=== PATIENT | male | born 1995 | race Caucasian/White ===

== ENCOUNTER 2020-08-18 17:38 | Emergency (ER) | payer BC, SELFPAY ==
--- NOTE | ~2020-08-18 | XR_ITS ---
EXAMINATION: XR ABDOMEN KUB CLINICAL INDICATION: Constipation. Irregular blood cells. COMPARISON: None TECHNIQUE: AP view of the abdomen. FINDINGS: There is scattered stool and gas seen throughout the colon without any significant distention. There is no organomegaly. No radiopaque calculi seen. No gross bony abnormality. XR/XR KUB IMPRESSION: Mild constipation.
--- NOTE | ~2020-08-18 | CT_ITS ---
EXAMINATION: CT ABDOMEN AND PELVIS WITH CONTRAST CLINICAL INFORMATION: Right lower quadrant abdominal pain COMPARISON: None TECHNIQUE: Multidetector volumetric images were obtained from the superior aspect of the liver through the pubic symphysis following administration 85 mL of Omnipaque 350 intravenous contrast. Sagittal and coronal reformatted images were obtained on the technologist's workstation. Oral contrast: No This CT examination was performed using dose optimization techniques as appropriate, variously including the following: *Automated exposure control *Adjustment of mA and/or kV according to patient size (this includes techniques or standardized protocols for targeted exams where dose is matched to indication/reason for exam; i.e. extremities or head) *Use of iterative reconstruction technique DLP: 369 mGy-cm FINDINGS: LUNG BASES: Clear. LIVER, GALLBLADDER, AND BILIARY TREE: The liver is normal in size, shape, and attenuation. No focal hepatic lesion or biliary ductal dilatation is present. The gallbladder is unremarkable with no evidence of radiopaque gallstones, gallbladder wall thickening, or obvious pericholecystic inflammatory changes. PANCREAS: Unremarkable. SPLEEN: Unremarkable. ADRENAL GLANDS: Unremarkable. KIDNEYS AND URETERS: The kidneys are normal in size, shape, and attenuation. No hydronephrosis, hydroureter, or calculi seen. No perinephric stranding. BLADDER: Unremarkable. GASTROINTESTINAL TRACT: The small and large bowel are unremarkable. The appendix is unremarkable. ABDOMINAL WALL: No significant hernia is appreciated. LYMPH NODES: Normal. VASCULAR: Unremarkable. PELVIC VISCERA: Unremarkable. OSSEOUS STRUCTURES: Unremarkable. CT/CT abdomen pelvis w con IMPRESSION: No etiology for the patient's right lower quadrant pain is identified.
[2020-08-18 18:28] VITALS: BP 133/76; PULSE 109; RESP 18; TEMP 38; O2SAT 99; BMI 18.8
[2020-08-18] MEDS: Acetaminophen 325 MG TABLET 650 MG PO (18:40)
[2020-08-18 20:27] LABS: MANUAL DIFF FLAG NO
[2020-08-18 20:29] LABS: Basophils Percent Auto 0.2 % (0-2); Eosinophils Percent Auto 0.1 % (0-4); Imm Gran Abs Auto 0.05 X10*3/uL (0.00-0.03); Imm Gran Pct Auto 0.3 % (0.0-0.4); Lymphocytes Absolute Auto 0.9 X10*3/uL (1.2-4.9); Lymphocytes Percent Auto 6.1 % (20-40); Mean Corpuscular HGB Conc 33.3 g/dl (31.0-36.0); Mean Corpuscular Hemoglobin 29.2 pg (27.0-33.0); Mean Corpuscular Volume 87.5 fL (80-98); Mean Platelet Volume 10.7 fL (9.4-12.4); Monocytes Absolute Auto 1.1 X10*3/uL (0.1-1.2); Monocytes Percent Auto 7.2 % (2-11); Neutrophils Absolute Auto 12.6 X10*3/uL (2.0-8.3); Neutrophils Percent Auto 86.1 % (45-73); Platelet Count 242 X10*3/uL (160-400); Red Blood Count 5.14 X10*6/uL (4.60-5.80); Red Cell Distribution Width 12.2 % (11.0-16.0); White Blood Count 14.6 X10*3/uL (4.8-10.8)
[2020-08-18 20:48] LABS: Alanine Aminotransferase 21 U/L (0-40); Albumin Level 4.6 g/dL (3.5-5.0); Alkaline Phosphatase 120 U/L (39-117); Anion Gap 15 (12-20); Aspartate Amino Transferase 19 U/L (5-37); Bilirubin Total 0.8 mg/dL (0.0-1.0); Blood Urea Nitrogen 19 mg/dL (9-16); Calcium 9.7 mg/dL (8.4-10.2); Carbon Dioxide 25 mmol/L (22-29); Chloride 102 mmol/L (96-108); Creatinine Clr Calc Pharmacy 104.2; Estimated Glomerular Filt Rate > 60; Glucose Random 87 mg/dL (60-115); Potassium 3.9 mmol/L (3.3-5.1); Sodium 138 mmol/L (135-145); Total Protein 7.3 g/dL (6.5-8.0)
--- NOTE | 2020-08-19 00:01 | ED_ITS ---
HPI - General Adult General Chief complaint: General Medical Stated complaint: weakness, lump in chest Time Seen by Provider: 08/18/20 23:34 Source: patient and family (Mother and father) Mode of arrival: ambulatory History of Present Illness HPI narrative: This is a 24-year-old male with history of ADHD and presents with complaints of fevers without nausea or vomiting, but having abdominal discomfort that is periumbilical and sharp which has progressively worsened throughout the day. Patient knows that he is constipated at times but denies any urinary pain/burning/frequency. There is also mention of a folliculitis at the right anterior chest wall as well as a history of constipation with noted blood mixed with stool that has been ongoing for years. Related Data Previous Rx's Medication Instructions Recorded doxycycline hyclate 100 mg PO BID 5 Days #10 cap 08/19/20 Allergies Allergy/AdvReac Type Severity Reaction Status Date / Time No Known Allergies Allergy Unverified 11/19/19 16:41 Review of Systems Review of Systems: Pertinent positives and negatives as stated in HPI 10 point review of systems is otherwise negative. PMFSH Past Medical History Source: nursing notes reviewed Medical History ADHD Social History Social History Alcohol intake: never Patient Tobacco Use Status: Former Tobacco user Smoked in Last 30 Days: No Use of substances other than those prescribed or required for medical reasons: No Advance Directives: No Advance Directives Information Provided: Yes Physical Exam Vital Signs: Vital Signs: Last Vital Signs Temp 99.4 F 08/19/20 00:44 Pulse 74 08/19/20 00:44 Resp 18 08/19/20 00:44 BP 116/67 08/19/20 00:44 Pulse Ox 99 08/19/20 00:44 Body Mass Index 18.8 VITAL SIGNS: Reviewed. GENERAL: Well developed, well nourished, in no acute distress. HEAD: Normocephalic/atraumatic EYES: PERRLA, EOMI OROPHARYNX: no oral lesions noted, posterior pharynx clear LUNGS: Normal breath sounds. No adventitious sounds or accessory muscle use. Sp O2<99> CHEST WALL: There is a noted folliculitis at the 11 o'clock position of the right areola with surrounding erythema but no induration CARDIOVASCULAR: Regular rate and rhythm without noted murmurs ABDOMEN: Soft, tenderness noted at the periumbilical without rebound as well as right lower quadrant, non-distended with bowel sounds. NEUROLOGIC: Alert and oriented x 4. Course Course Course Narrative: 24-year-old male with history and clinical presentation suggestive of possible appendicitis and less likely renal colic but possibility of constipation. Review of all investigations significant for leukocytosis but negative CT scan. Re-evaluation of the right anterior chest wall shows erythema and on bedside ultrasound conducted by myself there is no evidence fluid collection that would be amenable to drainage. Patient will receive initial antibiotics while here in the emergency room and be discharged with remaining prescription. Medical Decision Making Lab Data Result diagrams: 08/18/20 20:18 08/18/20 20:18 Labs: Lab Results 08/18/20 08/18/20 08/18/20 Range/Units 20:18 20:18 20:18 WBC 14.6 H (4.8-10.8) X10*3/uL RBC 5.14 (4.60-5.80) X10*6/uL Hgb 15.0 (14.0-18.0) g/dl Hct 45.0 (42-52) % MCV 87.5 (80-98) fL MCH 29.2 (27.0-33.0) pg MCHC 33.3 (31.0-36.0) g/dl RDW 12.2 (11.0-16.0) % Plt Count 242 (160-400) X10*3/uL MPV 10.7 (9.4-12.4) fL Immature Gran % (Auto) 0.3 (0.0-0.4) % Neut % (Auto) 86.1 H (45-73) % Lymph % (Auto) 6.1 L (20-40) % Pershing % (Auto) 7.2 (2-11) % Eos % (Auto) 0.1 (0-4) % Baso % (Auto) 0.2 (0-2) % Lymph # (Auto) 0.9 L (1.2-4.9) X10*3/uL Pershing # (Auto) 1.1 (0.1-1.2) X10*3/uL Eos # (Auto) 0.0 (0.0-0.4) X10*3/uL Baso # (Auto) 0.0 (0.0-0.2) X10*3/uL Abs Immat Gran (auto) 0.05 H (0.00-0.03) X10*3/uL Absolute Neuts (auto) 12.6 H (2.0-8.3) X10*3/uL Absolute Nucleated RBC 0.000 (0.0-0.012) X10*3/uL Nucleated RBC % (auto) 0.0 (0.0-0.2) /100WBC Sodium 138 (135-145) mmol/L Potassium 3.9 (3.3-5.1) mmol/L Chloride 102 (96-108) mmol/L Carbon Dioxide 25 (22-29) mmol/L Anion Gap 15 (12-20) BUN 19 H (9-16) mg/dL Creatinine 0.93 (0.5-1.4) mg/dL Estim Creat Clear Calc 104.2 Estimated GFR > 60 Random Glucose 87 (60-115) mg/dL Lactic Acid 1.0 (0.5-2.0) mmol/L Calcium 9.7 (8.4-10.2) mg/dL Total Bilirubin 0.8 (0.0-1.0) mg/dL AST 19 (5-37) U/L ALT 21 (0-40) U/L Alkaline Phosphatase 120 H (39-117) U/L Total Protein 7.3 (6.5-8.0) g/dL Albumin 4.6 (3.5-5.0) g/dL Discharge Plan Discharge Clinical Impression: Folliculitis, Cellulitis Patient Disposition: Home, Self-Care Instructions: Cellulitis (ED), Folliculitis (ED) Additional Instructions: 1. Recommend treating fevers and pain with [id number] Tylenol and ibuprofen as per instructions on the outside packaging. 2. Recommend doing warm, moist compresses 3 to 4 times a day for 5 minutes to help facilitate resolution of skin infection. 3. You have been provided with an antibiotic that you should take until compl ete. 4. Follow-up with your primary care provider in the next 2-3 days for re- evaluation. Return to the ER for any worsening of your symptoms. Prescriptions: New doxycycline hyclate 100 mg capsule 100 mg PO BID 5 Days Qty: 10 RF: 0 Referrals: Physician,None [Primary Care Provider] - 2 days
[2020-08-19] MEDS: iohexoL 350 MG/ML 100 ML INFUS..BTL 85 ML IV (00:07)
[2020-08-19] MEDS: Ketorolac Tromethamine 15 MG/ML VIAL IVPUSH (00:43)
[2020-08-19] MEDS: 0.9 % Sodium Chloride 1,000 ML 999 ML IV (00:43)
[2020-08-19 00:44] VITALS: BP 116/67; PULSE 74; RESP 18; TEMP 37.4; O2SAT 99
== END 2020-08-19 02:37 | disposition home or self-care (01) ==
PROVIDERS: Emergency Provider Student in an Organized Health Care Education/Training Program
DX: L73.9 Follicular disorder, unspecified (principal); L03.313 Cellulitis of chest wall
CPT/HCPCS: 36415; 74018; 74177; 80053; 83605; 85025; 87040; 96361; 96374; 99284; J1885; Q9967

== ENCOUNTER 2021-10-02 11:44 | Outpatient (REF) | payer BC, SELFPAY ==
[2021-10-02 13:01] LABS: Alanine Aminotransferase 22 U/L (0-40); Albumin Level 4.7 g/dL (3.5-5.0); Alkaline Phosphatase 126 U/L (39-117); Aspartate Amino Transferase 18 U/L (5-37); Bilirubin Direct 0.2 mg/dL (0.0-0.5); Bilirubin Total 0.5 mg/dL (0.0-1.0); Lipase 27 U/L (8-78); Total Protein 7.9 g/dL (6.5-8.0)
[2021-10-02 13:21] LABS: TSH reflex Free T4 0.95 uIU/mL (0.32-4.0)
[2021-10-02 13:28] LABS: Vitamin B12 1222 pg/mL (200-900)
[2021-10-04 12:46] LABS: Transglutaminase Ab IgG 3.4 U/mL; Transglutaminase IgA <1.0 U/mL
[2021-10-04 12:58] LABS: H Pylori Breath Test Negative (Negative)
[2021-10-07 13:22] LABS: Vitamin D 25-OH, D2 <4 ng/mL; Vitamin D 25-OH, D3 17 ng/mL; Vitamin D 25-OH, Total 17 ng/mL (30-100)
== END 2021-10-02 11:45 | disposition home or self-care (01) ==
LOC: HO.LAB 11:44
PROVIDERS: Visit Provider Nurse Practitioner Family
DX: R10.9 Unspecified abdominal pain (principal); R19.7 Diarrhea, unspecified; E55.9 Vitamin D deficiency, unspecified
CPT/HCPCS: 36415; 80076; 82306; 82607; 82746; 83013; 83690; 84443; 86364

== ENCOUNTER 2022-01-22 11:54 | Day surgery (SDC) | payer BC, SELFPAY ==
--- NOTE | 2022-01-19 11:26 | HO.ANESPROP2 ---
Documented by User: Adenike Louie NP 01/19/22 11:27 HPI - Anesthesia Eval Consult details Narrative: 26yo M for Colonoscopy [facility] Past Medical History Medical History ADHD Family History Family History (Updated 01/17/22 @ 16:22 by MACO Abraham) Maternal Grandfather Colon cancer Father Colon polyps Surgical History Surgical History History of esophagogastroduodenoscopy (EGD) Social History Social History Alcohol intake: never Patient Tobacco Use Status: Former Tobacco user Are you DNR?: No Advance Directives: No Advance Directives Information Provided: Yes Nutrition Risks: No Nutritional Risk Meds Allergies Allergy/AdvReac Type Severity Reaction Status Date / Time No Known Allergies Allergy Verified 01/22/22 12:49 Home Medications Medication Instructions Recorded Confirmed Last Taken Type dextroamphetamine-amphetamine 20 1 tab PO TID 01/17/22 Unknown History mg tablet methylphenidate HCl 10 mg tablet 10 mg PO TID 01/17/22 Unknown History Exam Exam Date and Time: January 19, 2022 112 Assessment and Plan Assessment Anesthesia Assessment: Chart Reviewed Documented by User: Edwige Mccall MD 01/22/22 12:51 [facility] Past Medical History Medical History ADHD Family History Family History (Updated 01/17/22 @ 16:22 by MACO Abraham) Maternal Grandfather Colon cancer Father Colon polyps Family history of problems with anesthesia: No Surgical History Surgical History History of esophagogastroduodenoscopy (EGD) History of Problems with Anesthesia: No Social History Social History Alcohol intake: never Patient Tobacco Use Status: Former Tobacco user Are you DNR?: No Advance Directives: No Advance Directives Information Provided: Yes Nutrition Risks: No Nutritional Risk Meds Allergies Allergy/AdvReac Type Severity Reaction Status Date / Time No Known Allergies Allergy Verified 01/22/22 12:49 Home Medications Medication Instructions Recorded Confirmed Last Taken Type dextroamphetamine-amphetamine 20 1 tab PO TID 01/17/22 Unknown History mg tablet methylphenidate HCl 10 mg tablet 10 mg PO TID 01/17/22 Unknown History Exam Airway Mallampati Class: II TM Dist: >3cm Neck ROM: Full Heart: rrr Lungs: cta Assessment and Plan Assessment Anesthesia Assessment: Anesthesia Plan Discussed Final Anesthetic Review Family History of Problems with Anesthesia: No History of Problems with Anesthesia: No NPO: Yes ASA Class: II Final Preanesthetic Review: No Changes in Pt Med Stat, Meds/Allgs Chart Reviewed and Consent Obtained/Reviewed Patient Risk: Intermediate Procedure Risk: Intermediate Anesthetic Plan Anesthetic Plan: MAC: Disposition: Standard PACU
[2022-01-22 12:28] VITALS: BMI 18.8
[2022-01-22] MEDS: Lactated Ringers 1,000 ML 100 ML IVCONT (12:30)
[2022-01-22 12:48] VITALS: BP 116/78; PULSE 77; RESP 18; TEMP 37; O2SAT 100
--- NOTE | 2022-01-22 13:06 | MHC.SHP ---
Pre-Procedural Eval Section A Date of Service: 01/22/22 The History & Physical has been completed within 30 days and I have reviewed it.: Yes Section B Chief Complaint: Hematochezia Allergies: Allergies Allergy/AdvReac Type Severity Reaction Status Date / Time No Known Allergies Allergy Verified 01/22/22 12:49 Plan Diagnosis/Plan: Unchanged I have reviewed the history and physical and performed a pertinent physical examination on my patient. No changes have occurred unless specified.
--- NOTE | 2022-01-22 13:15 | P.OP_ITS ---
Operative Note Operative Note Date of Service: 01/22/22 Narrative: Procedure: Colonoscopy Indication: Lower GI bleeding Endoscopist: Yesi Goyal MD Anesthesia Provider: Dr Edwige Zambrano Anesthesia type: MAC Instrument: Olympus [id number]-H190L Consent: Indication, risks vs benefits, and alternatives were discussed with the patient who gave written informed consent to proceed. EKG, pulse, pulse oximetry and blood pressure were monitored throughout the procedure. Please see anesthesia flowsheet. Procedure: The patient was brought to the procedure room and placed in the left lateral decubitus position. IV medications were administered by the anesthesia provider in attendance. A digital rectal exam was performed which was normal. The colonoscope was then inserted through the anus and advanced through the colon to the cecum at 70 cm,and terminal ileum. Mucosa was carefully examined under high definition white light as the instrument was slowly withdrawn in a retrograde panoramic fashion. Retroflexion was performed in ascending colon and rectum. The procedure was not difficult. There were no immediate obvious complications. The quality of the prep was BBPS: 3+2+2 = adequate Withdrawal time 23 minutes. Limitations: No limitations. Findings: Mucosa: Erythema, congestion, erosions and ulceration with purulent exudates noted in rectum, ascending colon and cecum. The IC valve also appeared involved. Terminal ileum mucosa was normal to 20 cm of intubation. Cold forceps biopsies were taken from cecum, IC valve, ascending, transervse, descending and sigmoid colon as well as rectum. On retroflexion in the rectum there appears to be at least one sinus/fistula tract opening at the dentate line. Excavated lesions: * Few diverticulosis of sigmoid colon. Impression: 1. Abnormal colon mucosa in rectum, ascending colon and cecum. Normal TI mucosa. R/o Crohn's with perianal involvement. Recommendations: - Follow path results. - MRI pelvis ordered - Start prednisone 40mg PO once daily x 2 weeks followed by a taper. - Labs ordered including Hep B and TSPOT - Follow up in office as scheduled
[2022-01-22 13:52] VITALS: BP 97/54; PULSE 66; RESP 16; TEMP 36.3; O2SAT 97
[2022-01-22 14:07] VITALS: BP 102/63; PULSE 66; RESP 16; O2SAT 100
[2022-01-22 14:22] VITALS: BP 117/82; PULSE 66; RESP 16; TEMP 37.1; O2SAT 100
== END 2022-01-22 15:35 | disposition home or self-care (01) ==
PROVIDERS: PCP Internal Medicine; Visit Provider Internal Medicine
PROC: 0DJD8ZZ Inspection of Lower Intestinal Tract, Via Natural or Artificial Opening Endoscopic (ICD-10-PCS; CPT 45378; principal; 2022-01-22 13:00)
DX: K50.10 Crohn's disease of large intestine without complications (principal); K62.89 Other specified diseases of anus and rectum; K50.911 Crohn's disease, unspecified, with rectal bleeding; K57.30 Diverticulosis of large intestine without perforation or abscess without bleeding; F90.9 Attention-deficit hyperactivity disorder, unspecified type; Z79.899 Other long term (current) drug therapy
CPT/HCPCS: 45380; 88305

== ENCOUNTER 2022-01-24 12:32 | Outpatient (REF) | payer BC, SELFPAY ==
[2022-01-24 12:56] LABS: Hematocrit 44.6 % (42.0-52.0); Hemoglobin 14.1 g/dl (14.0-18.0); Mean Corpuscular HGB Conc 31.6 g/dl (31.0-36.0); Mean Corpuscular Hemoglobin 28.3 pg (27.0-33.0); Mean Corpuscular Volume 89.4 fL (80.0-98.0); Platelet Count 286 X10*3/uL (160-400); Red Blood Count 4.99 X10*6/uL (4.60-5.80); Red Cell Distribution Width 12.5 % (11.0-16.0); White Blood Count 8.2 X10*3/uL (4.8-10.8)
[2022-01-24 13:41] LABS: HBc Num1 0.06 S/CO (0.00-0.79); HBsAGNum1 0.22 S/CO (0.00-0.99); HIV AB/AG Nonreactive (Nonreactive); HIV Num 1 0.08 S/CO (0.00-0.99); Hepatitis A Antibody IgG Nonreactive (Nonreactive); Hepatitis B Core Antibody Nonreactive (Nonreactive); Hepatitis B Surface Antigen Negative (Negative); ~HepC Num1 0.16 S/CO (0.00-0.79); ~Hepatitis A Antibody IgG 0.29 S/CO (0.00-0.99); ~Hepatitis B Surface Antibody NONREACTIVE (Nonreactive); ~Hepatitis C Antibody Nonreactive (Nonreactive)
[2022-01-24 13:47] LABS: Alanine Aminotransferase 21 U/L (0-40); Albumin Level 4.4 g/dL (3.5-5.0); Alkaline Phosphatase 126 U/L (39-117); Anion Gap 13 (12-20); Aspartate Amino Transferase 19 U/L (5-37); Bilirubin Total 0.3 mg/dL (0.0-1.0); Blood Urea Nitrogen 18 mg/dL (9-16); C Reactive Protein 0.73 mg/dL (< or = 0.50); Calcium 9.8 mg/dL (8.4-10.2); Carbon Dioxide 29 mmol/L (22-29); Chloride 102 mmol/L (96-108); Estimated Glomerular Filt Rate > 60; Glucose Random 90 mg/dL (60-115); Potassium 4.5 mmol/L (3.3-5.1); Sodium 139 mmol/L (135-145); Total Protein 7.1 g/dL (6.5-8.0); Vitamin D 25-OH Total 32.4 ng/mL (>30)
[2022-01-24 14:02] LABS: Folate 13.2 ng/mL (> or = 4.0); Vitamin B12 1760 pg/mL (200-900)
[2022-02-01 13:09] LABS: TPMT Activity 16
== END 2022-01-24 12:33 | disposition home or self-care (01) ==
LOC: HO.LAB 12:32
PROVIDERS: PCP Internal Medicine; Visit Provider Internal Medicine
DX: K52.9 Noninfective gastroenteritis and colitis, unspecified (principal)
CPT/HCPCS: 36415; 80053; 82306; 82607; 82657; 82746; 85027; 86140; 86704; 86706; 86708; 86803; 87340; 87389

== ENCOUNTER 2022-01-26 13:19 | Outpatient (REF) | payer BC, SELFPAY ==
[2022-02-04 01:34] LABS: Calprotectin, Fecal 515 mcg/g
[2022-02-05 22:54] LABS: Pancreatic Elastase-1 >500 mcg/g
== END 2022-01-26 13:20 | disposition home or self-care (01) ==
LOC: HO.LNP 13:19
PROVIDERS: Nurse Practitioner Family; Visit Provider Internal Medicine
DX: R10.2 Pelvic and perineal pain (principal); K52.9 Noninfective gastroenteritis and colitis, unspecified
CPT/HCPCS: 82656; 83993

== ENCOUNTER 2022-02-16 08:55 | Outpatient (REF) | payer BC, SELFPAY ==
--- NOTE | ~2022-02-16 | CT_ITS ---
EXAMINATION: CT ABDOMEN AND PELVIS WITH CONTRAST CLINICAL INFORMATION: Duodenal fistula. Sphincter disorder. COMPARISON: CT abdomen and pelvis 08/19/2020. TECHNIQUE: Multidetector volumetric images were obtained from the superior aspect of the liver through the pubic symphysis following administration 85 mL of Omnipaque 350 intravenous contrast. Sagittal and coronal reformatted images were obtained on the technologist's workstation. Oral contrast: No This CT examination was performed using dose optimization techniques as appropriate, variously including the following: *Automated exposure control *Adjustment of mA and/or kV according to patient size (this includes techniques or standardized protocols for targeted exams where dose is matched to indication/reason for exam; i.e. extremities or head) *Use of iterative reconstruction technique DLP: 271 mGy-cm FINDINGS: LUNG BASES: The lung bases are clear. Heart size is normal. LIVER, GALLBLADDER, AND BILIARY TREE: The liver is normal in size, shape, and attenuation. No focal hepatic lesion or biliary ductal dilatation is present. The gallbladder is unremarkable with no evidence of radiopaque gallstones, gallbladder wall thickening, or obvious pericholecystic inflammatory changes. PANCREAS: Unremarkable. SPLEEN: Unremarkable. ADRENAL GLANDS: Unremarkable. KIDNEYS AND URETERS: The kidneys are normal in size, shape, and attenuation. No hydronephrosis, hydroureter, or calculi seen. No perinephric stranding. BLADDER: Unremarkable. GASTROINTESTINAL TRACT: There is moderate scattered stool, gas and oral contrast seen throughout the colon without distention. The small bowel loops are normal caliber. No free air or free fluid seen. Appendix is not visualized. No inflammatory process seen in the abdomen. ABDOMINAL WALL: No significant hernia is appreciated. LYMPH NODES: Normal. VASCULAR: Unremarkable. PELVIC VISCERA: The prostate gland is normal size. There is no free fluid. No abnormal lymph nodes seen. OSSEOUS STRUCTURES: Unremarkable. CT/CT abdomen pelvis w IV con IMPRESSION: 1. Significant constipation without obstruction. 2. No acute intra-abdominal process seen. Fleischner guidelines were followed.
[2022-02-16] MEDS: Barium Sulfate Oral (Berry) 450 ML ORAL.SUSP 900 ML PO (11:56)
[2022-02-16] MEDS: iohexoL 350 MG/ML 100 ML INFUS..BTL 85 ML IV (11:57)
== END 2022-02-16 08:56 | disposition home or self-care (01) ==
LOC: HO.CT 08:55
PROVIDERS: PCP Internal Medicine; Visit Provider Nurse Practitioner Family
DX: K52.9 Noninfective gastroenteritis and colitis, unspecified (principal)
CPT/HCPCS: 74177; Q9967

== ENCOUNTER → 2022-02-27 08:36 | Outpatient (BNVA) | payer BC, SELFPAY | PROVIDERS: PCP Internal Medicine; Visit Provider Nurse Practitioner Family | DX: K52.9 Noninfective gastroenteritis and colitis, unspecified (principal) ==

== ENCOUNTER → 2022-03-20 08:37 | Outpatient (BNVA) | payer BC, SELFPAY | PROVIDERS: PCP Internal Medicine; Referring Provider Internal Medicine; Visit Provider Nurse Practitioner Family | DX: K52.9 Noninfective gastroenteritis and colitis, unspecified (principal) ==

== ENCOUNTER 2022-04-10 12:07 | Emergency (ER) | payer BC, SELFPAY ==
--- NOTE | 2022-04-10 12:10 | ECG_ITS ---
Test Reason : chest pain Blood Pressure : / mmHG Vent. Rate : 086 BPM Atrial Rate : 086 BPM P-R Int : 134 ms QRS Dur : 098 ms QT Int : 338 ms P-R-T Axes : 000 064 073 degrees QTc Int : 404 ms Normal sinus rhythm Normal ECG When compared with ECG of 14-MAY-2003 14:40, No significant changes seen Referred By: Generic ED Physician Electronically Signed By:REYNA MILLER MD
[2022-04-10 12:14] VITALS: BP 127/90; PULSE 84; RESP 18; TEMP 36.6; O2SAT 99; BMI 19.3
--- NOTE | 2022-04-10 12:14 | ED_ITS ---
HPI - Arrhythmia/Palpitations General Chief Complaint: Arrhythmia/Palpitations <Sierra Hammond CNP - Last Filed: 04/10/22 12:18> Stated Complaint: pt st afib <Sierra Hammond CNP - Last Filed: 04/10/22 12:18> Time Seen by Provider: 04/10/22 13:21 <Sierra Hammond CNP - Last Filed: 04/10/22 12:18> Source: patient <Wero FaustinDO stu - Last Filed: 04/10/22 13:28> Mode of arrival: ambulatory <Wero Razo DO - Last Filed: 04/10/22 13:28> History of Present Illness HPI narrative: 26 year old male presents to the ER with palpitations. Patient was at home at night and when he goes to bed he has palpitations. He states he used a izzy on his phone and was told he was in afib. he is not having palpitations at this time. he denies chest pain cough fever nausea or vomiting. he denies any stimulant. <Wero Razo DO - Last Filed: 04/10/22 13:28> MD complaint: palpitations <Wero Razo DO - Last Filed: 04/10/22 13:28> Related Data Home Medications: Home Medications Medication Instructions Recorded Confirmed dextroamphetamine-amphetamine 20 1 tab PO TID 01/17/22 01/22/22 mg tablet methylphenidate HCl 10 mg tablet 10 mg PO TID 01/17/22 01/22/22 Previous Rx's Medication Instructions Recorded cholecalciferol (vitamin D3) 50 50 mcg PO DAILY #90 caps 10/10/21 mcg (2,000 unit) capsule mesalamine 1.2 gram tablet,delayed 4.8 g PO DAILY #120 tabs 02/27/22 release (Lialda) prednisone 10 mg tablet 10 mg PO DIRECTED #42 tabs 03/02/22 famotidine 20 mg tablet (Pepcid) 20 mg PO BID #60 tabs 03/20/22 prednisone 5 mg tablet 5 mg PO DIRECTED #14 tabs 03/20/22 <Sierra Hammond CNP - Last Filed: 04/10/22 12:18> Allergies/Adverse Reactions: Allergies Allergy/AdvReac Type Severity Reaction Status Date / Time No Known Allergies Allergy Verified 03/20/22 08:42 <Sierra Hammond CNP - Last Filed: 04/10/22 12:18> Review of Systems Review of Systems: Review of systems: General: Patient denies any fever chills recent illness or falls Musculoskeletal: Denies back pain or body aches or other injuries HEENT: denies headache, runny nose, ear pain Respiratory: denies shortness of breath, cough Cardiovascular: no chest pain or palpitations : denies dysuria, frequency Abdomen: no nausea vomiting denies abdominal pain Extremities: no swelling, no pain Skin: no diaphoresis <Wero Razo DO - Last Filed: 04/10/22 13:28> Yes all other systems are reviewed and are negative <Wero Razo DO - Last Filed: 04/10/22 13:28> PMF Past Medical History Medical History: Medical History ADHD Crohn disease <Sierra Hammond CNP - Last Filed: 04/10/22 12:18> Surgical History: Surgical History History of esophagogastroduodenoscopy (EGD) Hx of colonoscopy <Sierra Hammond CNP - Last Filed: 04/10/22 12:18> Family History Family History: Family History Maternal Grandfather Colon cancer Father Colon polyps <Sierra Hammond CNP - Last Filed: 04/10/22 12:18> Social History Social History: Social History Alcohol intake: never Patient Tobacco Use Status: Former Tobacco user Advance Directives: No Advance Directives Information Provided: No <Sierra Hammond CNP - Last Filed: 04/10/22 12:18> Physical Exam Vital Signs: Vital Signs: Last Vital Signs Temp 98 F 04/10/22 12:14 Pulse 84 04/10/22 12:14 Resp 18 04/10/22 12:14 BP 127/90 H 04/10/22 12:14 Pulse Ox 99 04/10/22 12:14 BMI result Body Mass Index 19.3 <Sierra Hammond CNP - Last Filed: 04/10/22 12:18> Vital Signs: Last Vital Signs Temp 98 F 04/10/22 12:14 Pulse 84 04/10/22 12:14 Resp 18 04/10/22 12:14 BP 127/90 H 04/10/22 12:14 Pulse Ox 99 04/10/22 12:14 BMI result Body Mass Index 19.3 <Wero Razo DO - Last Filed: 04/10/22 13:28> General: Well-appearing well-nourished in no signs of distress HEENT: Normocephalic atraumatic Neck: No signs of JVD, no masses no tenderness or lymphadenopathy Cardiovascular: Regular rate and rhythm Respiratory: Clear to auscultation bilaterally Abdomen: Soft nontender no masses Extremities: Normal pedal pulses no signs of edema Skin: Dry warm no rashes Back: No tenderness full ROM <Wero Razo DO - Last Filed: 04/10/22 13:28> Course Course Course Narrative: This is an RME: Additional HPI, ROS, PE not included below will be deferred to primary provider. PAtient is a 26 year old male who Reports 6 months with nightly sensation of heavy but slow heart beat with feeling of discomfort to L anterior chest and feels it into his neck. patient has a phone izzy [employer] with a pulse oximeter, that records ECG waves, reading A-fib. States last night had the longest episode he has experienced, 3 hours, concerned about stroke risk. States he is taking Adderal but this is not a new medication. Plan: EKG, labs <Sierra Hammond CNP - Last Filed: 04/10/22 12:18> Medical Decision Making Differential Diagnosis Differential Diagnoses: The differential diagnosis associated with the presentation includes <DO Parag Carpenter Last Filed: 04/10/22 13:28> Hyperthyroidism enlarged heart electrolyte abnormality. Patient completely workup EKG does show atrial patient has palpitations now send patient to follow up with regular doctor to get likely a-monitor or something else to monitor him at home <Wero Razo DO - Last Filed: 04/10/22 13:28> Lab Data Result Diagrams: 04/10/22 12:22 04/10/22 12:22 <Sierra Hammond, RAMP SERVICE AGENT - Last Filed: 04/10/22 12:18> Labs: Lab Results 04/10/22 04/10/22 04/10/22 Range/Units 12:22 12:22 12:22 WBC 7.2 (4.8-10.8) X10*3/uL RBC 5.43 (4.60-5.80) X10*6/uL Hgb 15.4 (14.0-18.0) g/dl Hct 47.5 (42.0-52.0) % MCV 87.5 (80.0-98.0) fL MCH 28.4 (27.0-33.0) pg MCHC 32.4 (31.0-36.0) g/dl RDW 13.1 (11.0-16.0) % Plt Count 288 (160-400) X10*3/uL MPV 10.4 (9.4-12.4) fL Immature Gran % (Auto) 0.1 (0.0-0.4) % Neut % (Auto) 66.3 (45-73) % Lymph % (Auto) 23.4 (20-40) % [place] % (Auto) 9.1 (2-11) % Eos % (Auto) 0.7 (0-4) % Baso % (Auto) 0.4 (0-2) % Lymph # (Auto) 1.7 (1.2-4.9) X10*3/uL [place] # (Auto) 0.7 (0.1-1.2) X10*3/uL Eos # (Auto) 0.1 (0.0-0.4) X10*3/uL Baso # (Auto) 0.0 (0.0-0.2) X10*3/uL Abs Immat Gran (auto) 0.01 (0.00-0.03) X10*3/uL Absolute Neuts (auto) 4.8 (2.0-8.3) x10*3/uL Absolute Nucleated RBC 0.000 (0.0-0.012) X10*3/uL Nucleated RBC % (auto) 0.0 (0.0-0.2) /100WBC Sodium 142 (135-145) mmol/L Potassium 4.1 (3.3-5.1) mmol/L Chloride 105 (96-108) mmol/L Carbon Dioxide 26 (22-29) mmol/L Anion Gap 15 (12-20) BUN 18 H (9-16) mg/dL Creatinine 1.02 (0.5-1.4) mg/dL Estim Creat Clear Calc 93.3 Estimated GFR > 60 Random Glucose 98 (60-115) mg/dL Calcium 9.7 (8.4-10.2) mg/dL Magnesium 2.1 (1.6-2.6) mg/dL Total Bilirubin 0.3 (0.0-1.0) mg/dL AST 21 (5-37) U/L ALT 25 (0-40) U/L Alkaline Phosphatase 107 (39-117) U/L Troponin I High Sens < 3.5 (<3.5-35.0) ng/L Total Protein 6.8 (6.5-8.0) g/dL Albumin 4.5 (3.5-5.0) g/dL TSH 0.42 (0.32-4.0) uIU/mL <Sierra Hammond, RAMP SERVICE AGENT - Last Filed: 04/10/22 12:18> Lab Results 04/10/22 04/10/22 04/10/22 Range/Units 12:22 12:22 12:22 WBC 7.2 (4.8-10.8) X10*3/uL RBC 5.43 (4.60-5.80) X10*6/uL Hgb 15.4 (14.0-18.0) g/dl Hct 47.5 (42.0-52.0) % MCV 87.5 (80.0-98.0) fL MCH 28.4 (27.0-33.0) pg MCHC 32.4 (31.0-36.0) g/dl RDW 13.1 (11.0-16.0) % Plt Count 288 (160-400) X10*3/uL MPV 10.4 (9.4-12.4) fL Immature Gran % (Auto) 0.1 (0.0-0.4) % Neut % (Auto) 66.3 (45-73) % Lymph % (Auto) 23.4 (20-40) % [place] % (Auto) 9.1 (2-11) % Eos % (Auto) 0.7 (0-4) % Baso % (Auto) 0.4 (0-2) % Lymph # (Auto) 1.7 (1.2-4.9) X10*3/uL [place] # (Auto) 0.7 (0.1-1.2) X10*3/uL Eos # (Auto) 0.1 (0.0-0.4) X10*3/uL Baso # (Auto) 0.0 (0.0-0.2) X10*3/uL Abs Immat Gran (auto) 0.01 (0.00-0.03) X10*3/uL Absolute Neuts (auto) 4.8 (2.0-8.3) x10*3/uL Absolute Nucleated RBC 0.000 (0.0-0.012) X10*3/uL Nucleated RBC % (auto) 0.0 (0.0-0.2) /100WBC Sodium 142 (135-145) mmol/L Potassium 4.1 (3.3-5.1) mmol/L Chloride 105 (96-108) mmol/L Carbon Dioxide 26 (22-29) mmol/L Anion Gap 15 (12-20) BUN 18 H (9-16) mg/dL Creatinine 1.02 (0.5-1.4) mg/dL Estim Creat Clear Calc 93.3 Estimated GFR > 60 Random Glucose 98 (60-115) mg/dL Calcium 9.7 (8.4-10.2) mg/dL Magnesium 2.1 (1.6-2.6) mg/dL Total Bilirubin 0.3 (0.0-1.0) mg/dL AST 21 (5-37) U/L ALT 25 (0-40) U/L Alkaline Phosphatase 107 (39-117) U/L Troponin I High Sens < 3.5 (<3.5-35.0) ng/L Total Protein 6.8 (6.5-8.0) g/dL Albumin 4.5 (3.5-5.0) g/dL TSH 0.42 (0.32-4.0) uIU/mL <Wero RazoDO - Last Filed: 04/10/22 13:28> External Record Review External record reviewed: Outpatient record <Wero RazoDO - Last Filed: 04/10/22 13:28> Discharge Plan Discharge Clinical Impression: Palpitations <Sierra Hartsunshine Hammond CNP - Last Filed: 04/10/22 12:18> Patient Disposition: Home, Self-Care <Sierra Hammond CNP - Last Filed: 04/10/22 12:18> Instructions: Heart Palpitations (DC) <Sierra Hammond CNP - Last Filed: 04/10/22 12:18> Additional Instructions: Please call to cedrick escobedo. <Sierra Hammond CNP - Last Filed: 04/10/22 12:18> Prescriptions: No Action cholecalciferol (vitamin D3) 50 mcg (2,000 unit) capsule 50 mcg PO DAILY Qty: 90 3RF prednisone 10 mg tablet 10 mg PO DIRECTED Qty: 42 0RF Rx Instructions: see taper instructions Take 20 mg daily for 14 days then 10 mg daily for the next 14 days methylphenidate HCl 10 mg tablet 10 mg PO TID dextroamphetamine-amphetamine 20 mg tablet 1 tab PO TID mesalamine [Lialda] 1.2 gram tablet,delayed release (DR/EC) 4.8 g PO DAILY Qty: 120 2RF prednisone 5 mg tablet 5 mg PO DIRECTED Qty: 14 0RF famotidine [Pepcid] 20 mg tablet 20 mg PO BID Qty: 60 3RF <Sierra Hammond CNP - Last Filed: 04/10/22 12:18> Referrals: Roque Brower MD [Physician] - (Please call to follow up for your palpitations.) <Sierra Hammond CNP - Last Filed: 04/10/22 12:18>
[2022-04-10 12:25] LABS: MANUAL DIFF FLAG NO
[2022-04-10 12:32] LABS: Basophils Percent Auto 0.4 % (0-2); Eosinophils Absolute Auto 0.1 X10*3/uL (0.0-0.4); Eosinophils Percent Auto 0.7 % (0-4); Hematocrit 47.5 % (42.0-52.0); Hemoglobin 15.4 g/dl (14.0-18.0); Imm Gran Abs Auto 0.01 X10*3/uL (0.00-0.03); Imm Gran Pct Auto 0.1 % (0.0-0.4); Lymphocytes Absolute Auto 1.7 X10*3/uL (1.2-4.9); Lymphocytes Percent Auto 23.4 % (20-40); Mean Corpuscular HGB Conc 32.4 g/dl (31.0-36.0); Mean Corpuscular Hemoglobin 28.4 pg (27.0-33.0); Mean Corpuscular Volume 87.5 fL (80.0-98.0); Mean Platelet Volume 10.4 fL (9.4-12.4); Monocytes Absolute Auto 0.7 X10*3/uL (0.1-1.2); Monocytes Percent Auto 9.1 % (2-11); Neutrophils Absolute Auto 4.8 x10*3/uL (2.0-8.3); Neutrophils Percent Auto 66.3 % (45-73); Platelet Count 288 X10*3/uL (160-400); Red Blood Count 5.43 X10*6/uL (4.60-5.80); Red Cell Distribution Width 13.1 % (11.0-16.0); White Blood Count 7.2 X10*3/uL (4.8-10.8)
[2022-04-10 13:05] LABS: Alanine Aminotransferase 25 U/L (0-40); Albumin Level 4.5 g/dL (3.5-5.0); Alkaline Phosphatase 107 U/L (39-117); Anion Gap 15 (12-20); Aspartate Amino Transferase 21 U/L (5-37); Bilirubin Total 0.3 mg/dL (0.0-1.0); Blood Urea Nitrogen 18 mg/dL (9-16); Calcium 9.7 mg/dL (8.4-10.2); Carbon Dioxide 26 mmol/L (22-29); Chloride 105 mmol/L (96-108); Creatinine Clr Calc Pharmacy 93.3; Estimated Glomerular Filt Rate > 60; Glucose Random 98 mg/dL (60-115); Magnesium 2.1 mg/dL (1.6-2.6); Potassium 4.1 mmol/L (3.3-5.1); Sodium 142 mmol/L (135-145); Total Protein 6.8 g/dL (6.5-8.0)
[2022-04-10 13:09] LABS: Troponin-I High Sensitivity < 3.5 ng/L (<3.5-35.0)
[2022-04-10 13:19] LABS: TSH reflex Free T4 0.42 uIU/mL (0.32-4.0)
== END 2022-04-10 13:42 | disposition home or self-care (01) ==
PROVIDERS: Nurse Practitioner Family; Emergency Provider Student in an Organized Health Care Education/Training Program; PCP Internal Medicine
DX: R00.2 Palpitations (principal); I49.9 Cardiac arrhythmia, unspecified; Z87.891 Personal history of nicotine dependence; Z79.899 Other long term (current) drug therapy
CPT/HCPCS: 36415; 80053; 83735; 84443; 84484; 85025; 93005; 99283

== ENCOUNTER → 2022-06-12 08:22 | Outpatient (BNVA) | payer BC, SELFPAY | PROVIDERS: PCP Internal Medicine; Visit Provider Nurse Practitioner Family | DX: Z13.89 Encounter for screening for other disorder (principal) ==

== ENCOUNTER 2022-09-17 11:47 | Outpatient (AMB) | payer BC, SELFPAY ==
[2022-09-17 12:04] VITALS: BP 115/70; PULSE 76; BMI 20.1
--- NOTE | 2022-09-17 12:04 | MHC.OFFVIS ---
Intake Vital Signs 09/17/22 12:04 Height 5 ft 10 in Weight 140 lb 3.424 oz BMI 20.1 BP 115/70 Blood Pressure Location Lt brachial Position Sitting Pulse 76 Intake Visit Reasons: 2 Month Follow Up Intake Note: Glen presents in office as a est.patient for a 2month f/u for Crohn disease PT CC:pt reports having constipation pt denies any other GI Issues Network Contract Manager Required: No Accompanied by: Self / Same As Patient Allergies No Known Allergies Allergy (Verified 09/17/22 12:05) HPI 2 Month Follow Up HPI Details LAST VISIT: Crohn disease Continue mesalamine. Continue low FODMAP diet. Patient was encouraged to try protein shakes to help him gain some extra weight. I will see him in 2 months, sooner on as needed basis. Patient is agreeable to this plan and verbalizes understanding of instructions. He was given the opportunity to ask questions and all questions answered. ? Thank you for allowing me to participate in his care Plan Medications Changed From mesalamine 4.8 grams (4 x 1.2 gram) PO DAILY 120 tabs 2RF K50.90 To mesalamine (Lialda) 3.6 grams (3 x 1.2 gram) PO DAILY 180 tabs 2RF K50.90 TODAY'S VISIT Patient is here today for follow-up. Patient reports that he has been doing fairly well. Denies any diarrhea. Reports to be little bit more constipated now. Trying to do protein shakes to try to gain weight. Denies any weight loss. 6 lb weight gain since March. Patient does report to be stressed out of work and states that some of the postprandial abdominal bloating could be contributing largest of food but also to some stress. Patient denies melena, hematochezia, unintentional weight loss or ribbon like stools. Patient denies any dyspepsia, dysphagia or odynophagia. He continues to take mesalamine every day. No longer is using Pepcid. As his symptoms of acid reflux has subsided. [facility] Medical History ADHD Crohn disease Surgical History History of esophagogastroduodenoscopy (EGD) Hx of colonoscopy Family History Maternal Grandfather Colon cancer Father Colon polyps Social History Alcohol intake: never Patient Tobacco Use Status: Former Tobacco user Review of Systems Const Denies weight gain and Denies weight loss ENT Reports no additional complaints, Denies dysphagia and Denies odynophagia Card Reports no additional complaints Resp Reports no additional complaints GI Denies abdominal pain, Denies belching, Denies melena, Reports bloating, Denies change in bowel habits, Reports constipation (Occasional), Denies dysphagia, Denies excessive flatus, Denies dyspepsia, Denies heartburn, Denies diarrhea, Denies loose stools, Denies nausea, Denies odynophagia and Denies vomiting Reports no additional complaints Musc Reports no additional complaints Neuro Reports no additional complaints Psych Reports no additional complaints Endo Reports no additional complaints Physical Exam Vital Signs: Last Vital Signs Pulse 76 09/17/22 12:04 BP 115/70 09/17/22 12:04 BMI result Body Mass Index 20.1 Const General: healthy appearing, no acute distress and well developed Nutritional Appearance: well nourished Orientation/consciousness: patient oriented x3 HEENT Head: Yes normal to inspection, Yes normocephalic and Yes atraumatic Face and sinus: Yes normal facial exam Mouth: Normal oral and palatal mucosa present Throat: Yes posterior oropharynx normal, Yes tonsils normal and Yes uvula midline Eyes General: appearance normal, both eyes and all related structures Neck Neck: Yes normal visual inspection, Yes full ROM and Yes trachea midline Thyroid: Thyroid normal Resp Effort & Inspection: normal respiratory effort, able to speak in complete sentences, no tracheal deviation and symmetric chest movement Auscultation: clear to auscultation bilaterally Cardio Rate: regular rate Heart sounds: S1 normal heart sound present and S2 normal heart sound present GI Inspection: Yes normal to inspection and No distended Palpation (GI): Soft to palpation, not firm, nontender and No hepatosplenomegaly present Auscultation: normal bowel sounds General: Yes no CVA tenderness Back/Spine/Pelvis Back: no CVA tenderness Skin General skin exam: elasticity normal, turgor normal and dry skin Neuro General: patient oriented x3 Psych Appearance: grossly normal Mental Status: mental status grossly normal Speech and movement: Normal speech and movement present Affect: normal affect Thought process: Normal thought process present Assessment & Plan Assessment & Plan (1) Inflammatory bowel disease: Code(s): K52.9 - Noninfective gastroenteritis and colitis, unspecified Plan: Continue mesalamine. Continue avoiding dietary triggers. Will recheck his vitamin B12, folate, vitamin-B 12, vitamin-D level, CBC and CMP. I will see him in 6 months, sooner on as needed basis. Patient is agreeable to this plan and verbalizes understanding of instructions. He was given the opportunity to ask questions and all questions answered. Thank you for allowing participate in his care Orders: Orders Vitamin B12 and Folate 09/17/22 R19.7 - Diarrhea, unspecified Vitamin B3 (Niacin) 09/17/22 K52.9 - Noninfective gastroenteritis and colitis, unspecified Vitamin D 25-OH (D2 and D3) 09/17/22 E55.9 - Vitamin D deficiency, unspecified Complete Blood Count no Diff 09/17/22 K21.9 - Gastro-esophageal reflux disease without esophagitis Comprehensive Met. Panel 09/17/22 K21.9 - Gastro-esophageal reflux disease without esophagitis Medications: Discontinued famotidine Discontinued Reason: Doctor's Order 20 mg PO BID 60 tabs 3RF K29.70 - Gastritis, unspecified, without bleeding Coding Level of Care Code Est Pt Level 3 (02671) Diagnoses Inflammatory bowel disease K52.9 Time Spent (min) 25 Comment 15 minutes spent with patient and additional 10 minutes spent reviewing his records
== END 2022-09-17 12:35 | disposition home or self-care (01) ==
PROVIDERS: PCP Internal Medicine; Visit Provider Nurse Practitioner Family
DX: K52.9 Noninfective gastroenteritis and colitis, unspecified (principal)
CPT/HCPCS: 99213

== ENCOUNTER 2022-09-17 11:47 | Outpatient (REF) | payer BC, SELFPAY ==
[2022-09-17 13:51] LABS: Hematocrit 46.8 % (42.0-52.0); Hemoglobin 15.1 g/dl (14.0-18.0); Mean Corpuscular HGB Conc 32.3 g/dl (31.0-36.0); Mean Corpuscular Hemoglobin 29.2 pg (27.0-33.0); Mean Corpuscular Volume 90.3 fL (80.0-98.0); Mean Platelet Volume 11.7 fL (9.4-12.4); Platelet Count 267 X10*3/uL (160-400); Red Blood Count 5.18 X10*6/uL (4.60-5.80); Red Cell Distribution Width 12.4 % (11.0-16.0); White Blood Count 7.8 X10*3/uL (4.8-10.8)
[2022-09-17 14:36] LABS: Alanine Aminotransferase 23 U/L (0-40); Albumin Level 4.4 g/dL (3.5-5.0); Alkaline Phosphatase 131 U/L (39-117); Anion Gap 13 (12-20); Aspartate Amino Transferase 19 U/L (5-37); Bilirubin Total 0.4 mg/dL (0.0-1.0); Blood Urea Nitrogen 21 mg/dL (9-16); Calcium 9.6 mg/dL (8.4-10.2); Carbon Dioxide 26 mmol/L (22-29); Chloride 102 mmol/L (96-108); Estimated Glomerular Filt Rate > 60; Glucose Random 83 mg/dL (60-115); Sodium 137 mmol/L (135-145); Total Protein 7.2 g/dL (6.5-8.0)
[2022-09-17 15:31] LABS: Folate 9.3 ng/mL (> or = 4.0); Vitamin B12 > 2000 pg/mL (200-900)
[2022-09-22 17:03] LABS: Vitamin D 25-OH, D2 <4 ng/mL; Vitamin D 25-OH, D3 30 ng/mL; Vitamin D 25-OH, Total 30 ng/mL (30-100)
[2022-09-25 17:29] LABS: Nicotinamide 36 ng/mL; Vit B3 - Nicotinic Acid <20 ng/mL
== END 2022-09-17 11:48 | disposition home or self-care (01) ==
LOC: HO.LAB 11:47
PROVIDERS: PCP Internal Medicine; Visit Provider Nurse Practitioner Family
DX: K52.9 Noninfective gastroenteritis and colitis, unspecified (principal); K21.9 Gastro-esophageal reflux disease without esophagitis; E55.9 Vitamin D deficiency, unspecified
CPT/HCPCS: 36415; 80053; 82306; 82607; 82746; 84591; 85027

== ENCOUNTER 2023-03-19 11:13 | Outpatient (AMB) | payer BC, SELFPAY ==
--- NOTE | 2023-03-19 11:20 | A.OFFVIS_ITS ---
Intake Vital Signs 03/19/23 11:22 Height 5 ft 10 in Weight 138 lb 14.259 oz BMI 19.9 BP 125/67 Blood Pressure Location Lt brachial Position Sitting Pulse 61 Intake Visit Reasons: 6 month follow up Intake Note: Glen presents in the office as a 6 month follow up. CC: He states that he is not having any concerns at this time. Allergies No Known Allergies Allergy (Verified 03/19/23 11:22) HPI 6 month follow up HPI Details LAST VISIT: Inflammatory bowel disease Continue mesalamine. Continue avoiding dietary triggers. Will recheck his vitamin B12, folate, vitamin-B 12, vitamin-D level, CBC and CMP. I will see him in 6 months, sooner on as needed basis. Patient is agreeable to this plan and verbalizes understanding of instructions. He was given the opportunity to ask questions and all questions answered. ? Thank you for allowing participate in his care Plan Orders Orders Vitamin B12 and Folate 09/17/22 R19.7 - Diarrhea, unspecified Vitamin B3 (Niacin) 09/17/22 K52.9 - Noninfective gastroenteritis and colitis, unspecified Vitamin D 25-OH (D2 and D3) 09/17/22 E55.9 - Vitamin D deficiency, unspecified Complete Blood Count no Diff 09/17/22 K21.9 - Gastro-esophageal reflux disease without esophagitis Comprehensive Met. Panel 09/17/22 K21.9 - Gastro-esophageal reflux disease without esophagitis Medications Discontinued famotidine Discontinued Reason: Doctor's Order 20 mg PO BID 60 tabs 3RF K29.70 - Gastritis, unspecified, without bleeding TODAY'S VISIT Patient is here today for follow-up and discuss his lab results. Patient had normal blood work. Reports that he stopped mesalamine as he felt that it was not helping. Patient states that in the very beginning he noticed a difference, however as he was taking it he feels like it stopped working. Patient also feels that medication that he takes for ADD is affecting the way he feels. Patient reports that he has no diarrhea, occasional blood in the stool. Patient reports that will have occasional constipation. Patient reports occasional abdominal bloating and cramping. [facility] Medical History Crohn disease ADHD Surgical History Hx of colonoscopy History of esophagogastroduodenoscopy (EGD) Family History Maternal Grandfather Colon cancer Father Colon polyps Social History Alcohol intake: never Patient Tobacco Use Status: Former Tobacco user Review of Systems Const Denies weight gain and Denies weight loss ENT Reports no additional complaints, Denies dysphagia and Denies odynophagia Card Reports no additional complaints Resp Reports no additional complaints GI Denies abdominal pain, Denies belching, Denies melena, Reports bloating, Reports hematochezia (Occasional), Denies change in bowel habits, Denies dysphagia, Denies excessive flatus, Denies dyspepsia, Denies heartburn, Denies diarrhea, Denies loose stools, Denies nausea, Denies odynophagia and Denies vomiting Reports no additional complaints Musc Reports no additional complaints Neuro Reports no additional complaints Psych Reports no additional complaints Endo Reports no additional complaints Physical Exam Vital Signs: Last Vital Signs Pulse 61 03/19/23 11:22 BP 125/67 03/19/23 11:22 BMI result Body Mass Index 19.9 Const General: healthy appearing, no acute distress and well developed Nutritional Appearance: well nourished Orientation/consciousness: patient oriented x3 Resp Effort & Inspection: normal respiratory effort, able to speak in complete sentences, no tracheal deviation and symmetric chest movement Auscultation: clear to auscultation bilaterally Cardio Rate: regular rate GI Inspection: Yes normal to inspection and No distended Palpation (GI): Soft to palpation, not firm, nontender and No hepatosplenomegaly present Auscultation: normal bowel sounds General: Yes no CVA tenderness Back/Spine/Pelvis Back: no CVA tenderness Skin General skin exam: elasticity normal, turgor normal and dry skin Neuro General: patient oriented x3 Psych Appearance: grossly normal Mental Status: mental status grossly normal Assessment & Plan Assessment & Plan (1) Crohn disease: Code(s): K50.90 - Crohn's disease, unspecified, without complications Qualifiers: Gastrointestinal tract location: large intestine Digestive disease complication type: without complication Qualified Code(s): K50.10 - Crohn's disease of large intestine without complications (2) Inflammatory bowel disease: Code(s): K52.9 - Noninfective gastroenteritis and colitis, unspecified Plan Will check CRP, fecal calprotectin, T spot TB, enterography/colonography. Will see if insurance will be able to pay for Stelara. Patient failed treatment with mesalamine. I will see patient in 3 months, sooner on as needed basis. Patient is agreeable to this plan and verbalizes understanding of instructions. He was given the opportunity to ask questions and all questions answered. Thank you for allowing me to participate in his care Orders: Orders C Reactive Protein Today K58.9 - Irritable bowel syndrome without diarrhea CT colonography Today K50.90 - Crohn's disease, unspecified, without complications, K52.9 - Noninfective gastroenteritis and colitis, unspecified CT enterography Today K50.90 - Crohn's disease, unspecified, without complic ations, K52.9 - Noninfective gastroenteritis and colitis, unspecified T Spot TB Today K50.90 - Crohn's disease, unspecified, without complications, K52.9 - Noninfective gastroenteritis and colitis, unspecified Calprotectin, Fecal Today R15.9 - Full incontinence of feces Coding Level of Care Code Est Pt Level 4 (24183) Diagnoses Crohn's disease of large intestine without complication K50.10 Gastrointestinal tract location: large intestine Digestive disease complication type: without complication Inflammatory bowel disease K52.9 Time Spent (min) 35 Comment 20 minutes spent with patient and additional 15 minutes spent reviewing his records
[2023-03-19 11:22] VITALS: BP 125/67; PULSE 61; BMI 19.9
== END 2023-03-19 11:50 | disposition home or self-care (01) ==
PROVIDERS: PCP Internal Medicine; Visit Provider Nurse Practitioner Family
DX: K50.10 Crohn's disease of large intestine without complications (principal); K52.9 Noninfective gastroenteritis and colitis, unspecified
CPT/HCPCS: 99214

== ENCOUNTER → 2023-03-19 11:13 | Outpatient (BNVA) | payer BC, SELFPAY | PROVIDERS: PCP Internal Medicine; Visit Provider Nurse Practitioner Family ==